=== PATIENT | male | born 1965 | race Caucasian/White ===

== ENCOUNTER 2019-04-04 18:51 | Observation (INO) | payer MEDICARE, OTHER ==
[2019-04-04 19:20] LABS: ADD MAN DIFF? NO
[2019-04-04 19:22] LABS: WHITE BLOOD COUNT 7.5 10^3/ul (4.8-10.8)
[2019-04-04 19:22] LABS: BASOPHILS % 0.5 % (0.0-2.0); EOSINOPHILS # 0.2 10^3/ul (0.0-0.5); HEMATOCRIT 50.2 % (42.0-52.0); HEMOGLOBIN 16.3 g/dl (14.0-18.0); LYMPHOCYTES # 2.3 10^3/ul (0.8-2.9); LYMPHOCYTES % 30.5 % (15.0-51.0); MEAN CORPUSCULAR HGB CONC 32.5 g/dl (32.0-37.0); MEAN CORPUSCULAR VOLUME 92.3 fl (82.0-101.0); MEAN PLATELET VOLUME 9.7 fl (7.4-10.4); MONOCYTE # 0.5 10^3/ul (0.3-0.9); MONOCYTES % 6.4 % (0.0-11.0); NEUTROPHIL # 4.5 10^3/ul (1.6-7.5); NEUTROPHILS % 60.3 % (39.0-77.0); PLATELET COUNT 199 10^3/UL (140-415); RED BLOOD COUNT 5.44 10^6/ul (4.70-6.10)
[2019-04-04] MEDS: ONDANSETRON 4 MG INJ IV (19:28)
[2019-04-04] MEDS: KETOROLAC 15 MG INJ IV (19:28)
[2019-04-04 19:41] LABS: ALANINE AMINOTRANSFERASE 27 IU/L (13-69); ALBUMIN 4.1 g/dl (3.3-4.9); ALBUMIN/GLOBULIN RATIO 1.13; ALKALINE PHOSPHATASE 60 IU/L (42-121); ANION GAP 9 (5-13); ASPARTATE AMINO TRANSFERASE 23 IU/L (15-46); BILIRUBIN,INDIRECT 0.8 mg/dl (0-1.1); BILIRUBIN,TOTAL 0.8 mg/dl (0.2-1.3); BLOOD UREA NITROGEN 14 mg/dl (7-20); CALCIUM 9.3 mg/dl (8.4-10.2); CARBON DIOXIDE 26 mmol/L (21-31); CHLORIDE 103 mmol/L (97-110); CREATININE 0.98 mg/dl (0.61-1.24); Estimated GFR > 60 mL/min (>60); GLUCOSE 107 mg/dl (70-220); LIPASE 161 U/L (23-300); SODIUM 138 mmol/L (135-144); TOTAL PROTEIN 7.7 g/dl (6.1-8.1)
[2019-04-04 19:43] LABS: INR 0.94; PARTIAL THROMBOPLASTIN TIME 25.8 Sec (23.0-35.0); PROTIME 12.7 Sec (11.9-14.9)
[2019-04-04 19:53] LABS: B-TYPE NATRIURETIC PEPTIDE 89 PG/ML (0-125); TROPONIN-I < 0.012 ng/ml (0.000-0.120)
[2019-04-04] MEDS ORDERED: hydrALAzine 20 MG INJ IV (20:00)
[2019-04-04] MEDS ORDERED: NACL 0.9% 3 ML SYG IV (20:00)
[2019-04-04] MEDS ORDERED: morphine 2 MG INJ IV (20:00)
[2019-04-04] MEDS ORDERED: BISACODYL (EC) 5 MG TAB PO (20:00)
[2019-04-04] MEDS ORDERED: ONDANSETRON 4 MG INJ IV (20:00)
[2019-04-04] MEDS ORDERED: DOCUSATE SODIUM 100 MG CAP PO (20:00)
[2019-04-04] MEDS ORDERED: NITROGLYCERIN (SL) 0.4 MG TAB SL (20:00)
[2019-04-04] MEDS: ATORVASTATIN 40 MG TAB PO (22:30)
[2019-04-04] MEDS: ACETAMINOPHEN 325 MG TAB PO (22:39)
[2019-04-05 01:44] LABS: CREATINE KINASE 42 IU/L (23-200)
[2019-04-05 01:56] LABS: CK INDEX 0.9; CK-MB 0.36 ng/ml (0.0-2.4); TROPONIN-I < 0.012 ng/ml (0.000-0.120)
[2019-04-05 05:47] LABS: ADD MAN DIFF? NO
[2019-04-05 05:53] LABS: WHITE BLOOD COUNT 5.7 10^3/ul (4.8-10.8)
[2019-04-05 05:53] LABS: BASOPHILS % 0.5 % (0.0-2.0); EOSINOPHILS # 0.1 10^3/ul (0.0-0.5); EOSINOPHILS % 1.4 % (0.0-7.0); HEMATOCRIT 49.1 % (42.0-52.0); HEMOGLOBIN 15.5 g/dl (14.0-18.0); LYMPHOCYTES # 1.6 10^3/ul (0.8-2.9); LYMPHOCYTES % 27.7 % (15.0-51.0); MEAN CORPUSCULAR HEMOGLOBIN 29.8 pg (29.0-33.0); MEAN CORPUSCULAR HGB CONC 31.6 g/dl (32.0-37.0); MEAN CORPUSCULAR VOLUME 94.2 fl (82.0-101.0); MEAN PLATELET VOLUME 9.7 fl (7.4-10.4); MONOCYTE # 0.4 10^3/ul (0.3-0.9); MONOCYTES % 7.6 % (0.0-11.0); NEUTROPHIL # 3.5 10^3/ul (1.6-7.5); NEUTROPHILS % 62.6 % (39.0-77.0); PLATELET COUNT 198 10^3/UL (140-415); RED BLOOD COUNT 5.21 10^6/ul (4.70-6.10); RED CELL DISTRIBUTION WIDTH 13.2 % (11.5-14.5)
[2019-04-05 06:30] LABS: ALANINE AMINOTRANSFERASE 26 IU/L (13-69); ALBUMIN 3.6 g/dl (3.3-4.9); ALKALINE PHOSPHATASE 52 IU/L (42-121); ANION GAP 5 (5-13); ASPARTATE AMINO TRANSFERASE 20 IU/L (15-46); BILIRUBIN,INDIRECT 0.6 mg/dl (0-1.1); BILIRUBIN,TOTAL 0.6 mg/dl (0.2-1.3); BLOOD UREA NITROGEN 16 mg/dl (7-20); CARBON DIOXIDE 30 mmol/L (21-31); CHLORIDE 104 mmol/L (97-110); CHOL/HDL RATIO 5.2 RATIO; CHOLESTEROL 163 mg/dl (100-200); CREATININE 1.07 mg/dl (0.61-1.24); Estimated GFR > 60 mL/min (>60); GLUCOSE 108 mg/dl (70-220); HDL CHOLESTEROL 31 mg/dl (28-71); LDL CHOLESTEROL,CALCULATED 84 mg/dl; MAGNESIUM 2.3 mg/dl (1.7-2.5); POTASSIUM 4.3 mmol/L (3.5-5.1); SODIUM 139 mmol/L (135-144); TOTAL PROTEIN 6.6 g/dl (6.1-8.1); TRIGLYCERIDES 240 mg/dl (0-149)
[2019-04-05 06:32] LABS: CREATINE KINASE 38 IU/L (23-200)
[2019-04-05 06:35] LABS: CK INDEX 0.9; CK-MB 0.35 ng/ml (0.0-2.4); TROPONIN-I < 0.012 ng/ml (0.000-0.120)
[2019-04-05 07:35] LABS: HEMOGLOBIN A1C 5.9 % (0-5.9)
[2019-04-05] MEDS ORDERED: FENOFIBRATE 145 MG TAB PO (09:00)
[2019-04-05] MEDS ORDERED: ASPIRIN (EC) 81 MG TAB PO (09:00)
[2019-04-05] MEDS ORDERED: BENAZEPRIL 20 MG TAB PO (09:00)
[2019-04-05] MEDS ORDERED: CLOPIDOGREL 75 MG TAB PO (09:00)
[2019-04-05] MEDS ORDERED: METOPROLOL (XL) 50 MG TAB PO (09:00)
[2019-04-05] MEDS ORDERED: AMLODIPINE 10 MG TAB PO (09:00)
[2019-04-05] MEDS ORDERED: NON-FORMULARY/PATIENT OWN MED (Amlodipine Besylate/Benazepril (Amlodipine-Benazepril 10-20 PO (09:00)
== END 2019-04-05 08:24 | disposition left against medical advice (07) ==
LOC: E/R 18:51 → 6WM 19:58
DX: R07.9 Chest pain, unspecified (principal); I10 Essential (primary) hypertension; I25.10 Atherosclerotic heart disease of native coronary artery without angina pectoris; Z95.1 Presence of aortocoronary bypass graft; Z95.5 Presence of coronary angioplasty implant and graft; Z79.82 Long term (current) use of aspirin; E78.5 Hyperlipidemia, unspecified; E66.9 Obesity, unspecified; Z68.35 Body mass index [BMI] 35.0-35.9, adult; R73.03 Prediabetes
CPT/HCPCS: 36415; 71045; 80053; 80061; 82550; 82553; 83036; 83690; 83735; 83880; 84443; 84484; 85025; 85610; 85730; 93005; 96374; 96375; 99217; 99285-25